=== PATIENT | male | born 1955 | race African-American/Black ===

== ENCOUNTER 2017-06-09 23:08 | Emergency (ER) | payer OTHER ==
[~2017-06-09] VITALS: Ht 180.3 cm; Wt 92.7 kg
[~2017-06-09 23:08] MED LIST: ALDACTONE25 MG PO; ANTIVERT25 MG PO; ANUCORT-HC25 MG PR; ANUSOL-HC21 GM PR; ARTIFICIAL TEARS; ASPIRIN81 M1 PO; CELEXA10 MG PO; CELEXA20 MG PO; ENALAPRIL MALEA20 MG PO; FEOSOL325 MG PO; FEROSUL325 MG PO; FERRLECIT62.5 MG/1 IV; FERROUS SULFAT325 MG PO; GLUCOPHAGE1000 MG PO; GORDO-VITE E120 GM TP; HUMULIN R100 UNITS/ IM; HYDROCIL INSTA1 EAC1 PO; HYDROCORTISONE PR; IMODIUM A-1 MG/7.5 M PO; LACTULOSE10 GM/151 PO; LANTUS100 UNIT/1 SQ; LEVEMIR100 UNIT/2 SC; MAXZIDE 75 MG-1 EACH PO; METFORMIN HCL1000 MG PO; METOPROLOL TART50 MG PO; MOISTURIZING L454 ML TP; OMEPRAZOLE20 MG PO; PAIN RELIEVER325 MG PO; PRIMAXIN 500 M500 MG IM; PROCTOZONE-HC30 GM PR; SPIRONOLACTONE25 MG PO; TRAVEL SICKNESS25 MG PO; TYLENOL REGULA325 MG PO; VASOTEC20 MG PO; XALATAN2.5 ML BOTH EYES; Xalatan BOTH EYES; ZANTAC150 MG PO
[2017-06-09 23:53] LABS: HEMATOCRIT 31.3 % (38.0-50.0); MCH 30.6 PG (29.0-34.0); MCHC 32.9 G/DL (30.0-36.0); MCV 92.9 FL (86-99); MEAN PLAT.VOLUME 11.6 uM^3 (9.0-12.4); NRBC (%) 0.2 /100 WBC (0-0); PLATELET COUNT 115 K/uL (156-360); RBC DIS.WIDTH-CV 19.3 % (11.8-14.6); RBC DIS.WIDTH-SD 65.3 % (39-53); RED BLOOD COUNT 3.37 M/uL (4.00-5.50); WHITE BLOOD COUNT 8.4 K/uL (4.1-10.2)
[2017-06-10] LABS: INTER. NORMALIZED RATIO 1.5; PROTHROMBIN TIME 16.7 SEC (10.2-12.9)
[2017-06-10 00:03] LABS: CHLORIDE 105 mEq/L (99-109); POTASSIUM 4.1 mEq/L (3.7-5.4); PTT 37.1 SEC (25-37); SODIUM 131 mEq/L (136-147)
[2017-06-10 00:06] LABS: GLUCOSE 190 mg/dL (70-99)
[2017-06-10 00:07] LABS: ANION GAP 6 MEQ/L (2-14); TOTAL BILIRUBIN 6.6 mg/dL (0.0-1.0)
[2017-06-10 00:09] LABS: ALKALINE PHOSPHATASE 185 IU/L (3-129); GFR ESTIMATE (CALCULATED) > 59 mL/min/
[2017-06-10 00:10] LABS: UREA NITROGEN (BUN) 25 mg/dL (9-23)
[2017-06-10 00:13] LABS: LIPASE 130 U/L (1.0-51.0); TROP-I INTERPRETATION NEGATIVE; TROPONIN-I 0.02 ng/mL (0.0-0.30)
[2017-06-10 03:57] VITALS: BP 105/60
== END 2017-06-10 03:58 | disposition short-term general hospital (02) ==
LOC: EME → EDBD 23:08 → EME 23:08
PROVIDERS: Emergency Medicine
DX: J18.9 Pneumonia, unspecified organism (principal); K52.9 Noninfective gastroenteritis and colitis, unspecified; E72.20 Disorder of urea cycle metabolism, unspecified; D64.9 Anemia, unspecified; R79.89 Other specified abnormal findings of blood chemistry; E87.1 Hypo-osmolality and hyponatremia; K76.6 Portal hypertension; R16.1 Splenomegaly, not elsewhere classified; R18.8 Other ascites; Z90.49 Acquired absence of other specified parts of digestive tract; K40.20 Bilateral inguinal hernia, without obstruction or gangrene, not specified as recurrent; I10 Essential (primary) hypertension; E11.9 Type 2 diabetes mellitus without complications; Z79.4 Long term (current) use of insulin
CPT/HCPCS: 71010; 74177; 80053; 82140; 83605; 83690; 84484; 85027; 85610; 85730; 86850; 86900; 86901; 87040; 87077; 87186; 87801; 93005; 99281; 99285; J1200; J1956; J2543; J7030; S0028